=== PATIENT | female | born 1985 | race Caucasian/White ===

== ENCOUNTER 2018-08-09 23:00 | Inpatient (IN) | payer MEDICAID, OTHER, SELFPAY ==
--- NOTE | 2018-08-09 16:50 | PDOC.FPROB ---
FMR OB H&P: HPI - History of Present Illness Chief Complaint: Induction of labor Indentification: 32 y/o @ 41w1d WGA by LMP c/w 27w2d US History of Present Illness: Patient here for induction of labor for post-dates, however patient now desires a repeat . She endorses movement, denies vaginal bleeding, d/c, ctx, LOF. She denies dysuria, fevers, chills, headache, vision changes, RUQ pain. Primary Care Physician: Dr. Nicholson and Dr. Smith at [facility]. FMR OB H&P: Current - Care : 3 Para: 2000 Gestational age: 41w1d Due date: 08/01/18 Dating Criteria: LMP c/w 27w2d US Course/Complications: Recurrent UTI's in Anemia of Possible umbilical hernia on US, no evidence of gastroscisis - OB Labs HIV: negative RPR: negative Gonorrhea: negative Chlamydia: negative 1 hour gtt: 63 GBS: negative H&H: 10.7/30.2, 9.8/29.1 - First Trimester Ultrasound First trimester: Late to care, no first trimester US done here - Anatomy Survey Anatomy survey: Possible umbilical hernia, no evidence of gastroscisis FMR OB H&P: History - Past Medical History PMH: Recurrent UTI's on macrobid h/o Chlamydia prior to Anemia in - OB History OB History: 1. Term 2. Term section for NRFHT - [employer] History [employer] History: h/o chlamydia prior to s/p treatment with negative JOSELINE. h/o HSIL s/p colpo, repeat pap showed NILM in 01/2018 - Surgical History Sx History: section x1 - Social History Social History: Denies tobacco, EtOH, and drug use - Family History Family History: Mother - DM, HTN FMR OB H&P: Medications - Current Home Medications: Medication Instructions Recorded Confirmed Type Pnv No.95/Ferrous Fum/Folic AC 1 tab PO DAILY 08/09/18 08/09/18 History [ Vitamin Tablet] Allergies/Adverse Reactions: Allergies Allergy/AdvReac Type Severity Reaction Status Date / Time No Known Allergies Allergy Verified 08/09/18 23:38 FMR OB H&P: ROS - Review of Systems General: denies: fever/chills, weight/appetite/sleep changes Eyes: denies: eye pain, vision changes ENT: denies: nasal congestion, rhinorrhea Cardiovascular: denies: chest pain, palpitation Respiratory: denies: cough, congestion, shortness of breath Gastrointestinal: denies: abdominal pain, nausea, vomiting Genitourinary (Female): denies: vaginal discharge, vaginal pain, vaginal bleeding Musculoskeletal: denies: pain, stiffness, tenderness Neurologic: denies: numbness, weakness Integumentary: denies: itching Psychological: denies: depression, anxiety FMR OB H&P: Vital Signs - Maternal Vital signs: BP 109/71 HR 95 RR 19 Temp 98.7 - Heart Tones Baseline: 130 Variability: moderate Acceleration: absent Deceleration: absent Category: category 1 [place] contractions every: 7-8 minutes FMR OB H&P: Physical Exam - Physical Exam General: NAD, awake, alert and oriented HEENT: normocephalic and atraumatic, MMM Neck: supple, no JVD Chest: non-tender to palpation Heart: RRR, normal S1/S2, no murmurs/rubs/gallops General: CTAB, no respiratory distress, good air movement, no wheezing Abdomen: soft, gravid, non-tender, bowel sound present Musculoskeletal: pulses present, FROM in all four extremities Neurological: cranial nerves II through XII intact (grossly) Skin: no rash, capillary refill <2 seconds Psychiatric: intact recent and remote memory, good judgement and insight - Pelvic Exam SVE: 1/50/-3 Miner score: 3 Presentation: cephalic confirmed by bedside US Estimated Weight: 7 lbs (Carlos holds) FMR OB H&P: A/P - Problem List (1) Encounter for trial of labor Status: Acute Code(s): O33.9 - MATERNAL CARE FOR DISPROPORTION, UNSPECIFIED Assessment and Plan: 32 y/o @ 41w1d here for induction of labor TOLAC -Pt consented for TOLAC however during discussion, pt requests C section -Monitor with intermittent monitoring (2) History of delivery Status: Acute Code(s): Z98.891 - HISTORY OF UTERINE SCAR FROM PREVIOUS SURGERY Assessment and Plan: h/o vertical skin incision with Low transverse uterine incision Posterior placenta on US 75.7% chance success of TOLAC -Pt consented for TOLAC however wishes to proceed with c section, likely in the morning Disposition: Admit to L&D Discussion: Date/Time: 08/09/18 9775 This H&P was discussed with Dr. Tay who agree with the above documentation and plan. Addendum - Attending - Attending Attestation Date/Time: 08/10/18 4441 I personally evaluated the patient and discussed the management with Dr. Beth I agree with the History, Examination, Assessment and Plan documented above with any addition or exceptions noted below. 32 y/o female at 41.1 wks by LMP/27.3 wk sono admitted for post-dates IOL. Patient with prior history of LTCS with last . R/B/A discussed during . Patient planned for TOLAC. Today R/B/A and consents discussed with patient. Patient and declined TOLAC and requested RLTCS. Patient obs overnight. NPO after midnight. Scheduled for 0730 section in AM. FHT cat 1. May continue intermittent monitoring. Placenta fundal. Cephalic presentation. Meenakshi
[2018-08-09 23:51] VITALS: BMI 30.9
[2018-08-10] MEDS ORDERED: Promethazine HCl 25 MG/ML VIAL IM PRN ×2 (01:55→12:24)
[2018-08-10] MEDS ORDERED: Ondansetron PF 4 MG/2 ML Vial IVP PRN ×3 (01:55→14:36)
[2018-08-10] MEDS ORDERED: Lactated Ringer's 1,000 ML IV SCH (02:00)
[2018-08-10 02:05] LABS: Hemoglobin 11.4 g/dL (12.0-16.0); Mean Corpuscular Volume 85.2 fL (78.0-98.0); Mean Platelet Volume 8.6 fL (7.4-10.4); Platelet Count 302 thou/uL (130-400); Red Blood Cell (RBC) Count 3.93 mill/uL (4.20-5.40); White Blood Cell (WBC) Count 9.5 thou/uL (4.8-10.8)
[2018-08-10] MEDS ORDERED: Bicitra 30 ML UDCUP PO SCH (02:15)
[2018-08-10] MEDS: Dextrose 5%-Lactated Ringers 1,000 ML IV SCH ×3 (02:15→17:58)
[2018-08-10] MEDS ORDERED: CEFAZOLIN 2 GM/50 ML BAG IVPB SCH (02:30)
[2018-08-10 02:44] LABS: HBSAg Index 0.26 S/CO (0-0.99); Hep B Surf Ag Non-Reactive S/CO (NonReactive)
[2018-08-10 05:36] LABS: Syphilis Antibody Nonreactive (Nonreactive); Syphilis Antibody Index 0.05 S/CO (<1.00 Non-Reactive)
[2018-08-10] MEDS ORDERED: Bicitra 30 ML UDCUP ONE (07:24)
[2018-08-10] MEDS ORDERED: CEFAZOLIN 2 GM/50 ML BAG ONE (07:24)
[2018-08-10] MEDS ORDERED: Bupivacaine 0.75% W/DEXTROSE 8.25% 2 ML AMP ONE (09:44)
[2018-08-10] MEDS ORDERED: Morphine PF 1 MG/ML SYR ONE (09:44)
[2018-08-10] MEDS ORDERED: Ondansetron PF 4 MG/2 ML Vial ONE (09:44)
[2018-08-10] MEDS ORDERED: Oxytocin 10 UNITS/ML VIAL ONE (09:45)
[2018-08-10] MEDS ORDERED: ePHEDrine/0.9% NaCl/PF SYRINGE 50 mg/10 ml ONE (10:26)
[2018-08-10] MEDS ORDERED: Fentanyl 100 MCG/2 ML VIAL ONE (11:18)
[2018-08-10] MEDS ORDERED: NS / Oxytocin 40 units/1000ml 1,000 ML ONE (11:42)
--- NOTE | 2018-08-10 11:56 | PDOC.OPDEL ---
OB Operative/Delivery Note Delivery Dr/Surgeon: Dr. Nicholson and Dr. Elena with Dr. Yanez attending Pre-Delivery Diagnosis: scheduled section Procedure/Post Delivery Dx: primary low transverse CS Weeks gestation: 41 (41w2d) Anesthesia: spinal - Findings A Sex: female - 1 min: 9 - 5 min: 9 - Additional Findings/Plan Placenta delivered: spontaneous findings: low transverse hysterotomy without extension Estimated blood loss: 465 mL Compilations/Other Findings: Preoperative Diagnosis: 1)Term intrauterine 2)Previous with vertical skin incision 3)Anemia of 4)Recurrent UTI's in Postoperative Diagnosis: 1)Term intrauterine , delivered 2)Previous with vertical skin incision 3)Anemia of 4)Recurrent UTI's in Anesthesia: spinal Indications: The patient is a 32 year old female at 41.2 weeks gestation who presents for a repeat scheduled . Procedure in Detail: After risks, benefits, and alternatives were explained to the patient, she gave informed consent. Pre-operative antibiotics included Cefazolin 2 gram IV. The patient was taken to the operating room and spinal anesthesia was initiated. She was placed in the supine position with a left tilt and prepped and draped in usual sterile fashion. A vertical skin incision was made with a scalpel and the prior scar was removed in an eliptical fashion. The incision was then carried down to the level of the fascia which was then cut in the midline in a vertical fashion. The incision was continued through the midline of the recti muscles. The peritoneum was entered sharply and retracted manually. Bladder blade was placed. A low transverse score was made on the uterus with the scalpel and the uterus was entered in the midline bluntly. Meconium stained fluid was seen. The hysterotomy was extended manually in a cephalocaudal fashion. The infant was noted to be vertex and was easily delivered by fundal pressure. Mouth and nares were bulb suctioned. Cord clamped and cut after 30 seconds of delayed cord clamping and grossly normal female infant was handed to waiting nurse. Cord blood was obtained. Placenta was spontaneousy delivered, found to be intact with 3 vessel cord and discarded. The uterus was externalized and the endometrium was curetted with a dry lap. The bladder blade was replaced and the uterus was closed with a running locking #1 monocryl suture followed by one figure of eight #1 monocryl suture to achieve hemostasis. Following this hemostasis was noted. The abdomen was inspected and suctioned free of clots. The uterus was internalized and the hysterotomy was again noted to be hemostatic. The peritoneum was closed with running, non-locking 3-0 chromic. The fascia was closed with a running non- locking 0-PDS suture. The subcutaneous tissue was irrigated and there were no bleeders. The subcutaneous tissue was approximated with interrupted 2-0 plain gut sutures. The skin was approximated with isaura and a pressure dressing was placed. All counts were correct. The patient tolerated the procedure well and was taken to the recovery room in stable condition. Quantitative Blood Loss: 465 ml Complications: None Specimens: Cord blood sent to lab for blood type Findings: Grossly normal male/female with apgars of 9 and 9 at 1 and 5 minutes respectively. Grossly normal placenta with 3 vessel cord discarded. Drains: Mercado to gravity draining clear urine Post delivery plan: routine recovery
[2018-08-10] MEDS ORDERED: diphenhydrAMINE 50 MG/ML VIAL IVP PRN (12:24)
[2018-08-10] MEDS ORDERED: Naloxone HCl 0.4 mg/ml Vial IVP PRN ×2 (12:24)
[2018-08-10] MEDS ORDERED: Naloxone HCl 0.4 mg/ml Vial IV PRN (12:24)
[2018-08-10] MEDS ORDERED: Promethazine HCl 25 MG SUPP PR PRN (12:24)
[2018-08-10] MEDS ORDERED: Eucerin (Mineral Oil/Petrolatum,White) 30 gm Jar TOP PRN (12:24)
[2018-08-10] MEDS ORDERED: Ketorolac Tromethamine 30 MG/ML VIAL IVP PRN (12:24)
[2018-08-10] MEDS ORDERED: Communication Order-Pharmacy FS SCH (12:30)
[2018-08-10] MEDS ORDERED: Acetaminophen 325 MG TAB PO PRN (14:36)
[2018-08-10] MEDS ORDERED: Ibuprofen 800 MG TAB PO SCH (14:36)
[2018-08-10] MEDS ORDERED: Adacel (T-DAP) 0.5 ML SYRINGE IM ONE (14:36)
[2018-08-10] MEDS ORDERED: Simethicone Chewable 80 MG TAB PO PRN (14:36)
[2018-08-10] MEDS ORDERED: Lanolin Ointment 7 GM TUBE TOP PRN (14:36)
[2018-08-10] MEDS: Ibuprofen 800 MG TAB PO SCH ×2 (15:52→21:54)
[2018-08-10] MEDS: Docusate Calcium (SURFAK) 240 MG CAP PO SCH (21:54)
[2018-08-11] MEDS: HYDROcodone/Acetaminophen 5/325 mg Tablet PO PRN ×3 (00:47→20:02)
[2018-08-11] MEDS: Dextrose 5%-Lactated Ringers 1,000 ML IV SCH ×3 (04:26→14:55)
--- NOTE | 2018-08-11 05:19 | PDOC.PP ---
Post Progress Note Post Day #: 1 Subjective: Post op day #1 s/p rLTCS with vertical incision. No significant overnight events. Patient doing well. Ambulating. Tolerating PO. PO intake tolerated: yes Flatus: yes Ambulation: yes Vital Signs (12 hours) Temp Pulse Resp BP Pulse Ox 08/11/18 04:30 98.2 F 63 16 94/50 L 08/11/18 00:45 98.7 F 75 16 92/54 L 08/10/18 19:45 98.8 F 75 20 109/59 L 97 Weight Weight 79.379 kg - Physical Examination General: NAD Cardiovascular: no m/r/g, RRR Respiratory: clear to auscultation bilaterally, non-labored breathing Abdominal: + bowel sounds, lochia (less than period), no distention, appropriately TTP Fundus firm & at: at umbilicus Extremities: negative homans (B) Deviation from normal: Dressing clean, dry, and intact Neurological: no gross focal deficits Psychiatric: A&Ox3, normal affect Result Diagrams: 08/11/18 05:39 Additional Labs: Post Labs Blood Type O POSITIVE 08/09/18 23:55 Hep Bs Antigen Non-Reactive S/CO (NonReactive) 08/09/18 23:55 (1) S/P repeat low transverse Code(s): Z98.891 - HISTORY OF UTERINE SCAR FROM PREVIOUS SURGERY Status: Acute Comment: 32 year old at 41.2 wks delivered TAGA F infant at 10: 43 on 08/10 via rLTCS with vertical incision. QBL 465 mL. Apgars 9/9. - Routine PP care - Contraception: Need to discuss with patient prior to d/c - VSS (2) Term delivered Code(s): O80 - ENCOUNTER FOR FULL-TERM UNCOMPLICATED DELIVERY Status: Acute (3) Chlamydia infection affecting Code(s): O98.819 - OTH MATERNAL INFEC/PARASTC DISEASES COMP PREG, UNSP TRI; A74.9 - CHLAMYDIAL INFECTION, UNSPECIFIED Status: Acute Comment: s/p negative JOSELINE (4) Anemia affecting Code(s): O99.019 - ANEMIA COMPLICATING , UNSPECIFIED TRIMESTER Status : Acute Qualifiers: Trimester: third trimester Qualified Code(s): O99.013 - Anemia complicating , third trimester Comment: H/H stable (5) Recurrent UTI (urinary tract infection) complicating Code(s): O23.40 - UNSP INFECTION OF URINARY TRACT IN , UNSP TRIMESTER Status: Acute Qualifiers: Trimester: third trimester Qualified Code(s): O23.43 - Unspecified infection of urinary tract in , third trimester - Assessment/Plan Stable. Anticipate d/c home within next 34-48 hours. Tiffani Larsen, DO PGY-2 Addendum - Attending - Attending Attestation Date/Time: 08/11/18 2877 I personally evaluated the patient and discussed the management with Dr. Larsen. I agree with the History, Examination, Assessment and Plan documented above with any addition or exceptions noted below. Stable POD# 1 s/p RLTCS. Meeting appropriate milestones. Acute blood loss anemia-appropriate drop in H+H postoperatively. Anticipate d/c to home on POD #2 or 3.
[2018-08-11 05:49] LABS: Hemoglobin 9.9 g/dL (12.0-16.0); Mean Corpuscular HGB CONC 32.8 g/dL (32.0-36.0); Mean Corpuscular Hemoglobin 28.4 pg (27.0-31.0); Mean Corpuscular Volume 86.4 fL (78.0-98.0); Mean Platelet Volume 8.2 fL (7.4-10.4); Platelet Count 240 thou/uL (130-400); White Blood Cell (WBC) Count 10.8 thou/uL (4.8-10.8)
[2018-08-11] MEDS: Prenatal Vitamin 1 TAB PO SCH (08:08)
[2018-08-11] MEDS: Ibuprofen 800 MG TAB PO SCH ×3 (08:08→21:40)
[2018-08-11] MEDS: Docusate Calcium (SURFAK) 240 MG CAP PO SCH ×2 (08:08→21:41)
[2018-08-11] MEDS ORDERED: Sodium Chloride 0.9% 10 ML ONE (16:44)
[2018-08-11] MEDS ORDERED: Lactated Ringer's 1,000 ML IV SCH (16:45)
[2018-08-11] MEDS ORDERED: Lactated Ringer's 500 ML IV SCH (16:48)
[2018-08-11 16:49] LABS: Hemoglobin 10.4 g/dL (12.0-16.0); Mean Corpuscular HGB CONC 32.5 g/dL (32.0-36.0); Mean Corpuscular Hemoglobin 28.2 pg (27.0-31.0); Mean Corpuscular Volume 86.8 fL (78.0-98.0); Mean Platelet Volume 7.9 fL (7.4-10.4); Platelet Count 257 thou/uL (130-400); RBC Distribution Width 14.1 % (11.5-14.5); Red Blood Cell (RBC) Count 3.68 mill/uL (4.20-5.40); White Blood Cell (WBC) Count 9.4 thou/uL (4.8-10.8)
[2018-08-12] MEDS: Dextrose 5%-Lactated Ringers 1,000 ML IV SCH (04:41)
[2018-08-12] MEDS: Ibuprofen 800 MG TAB PO SCH (06:13)
--- NOTE | 2018-08-12 07:27 | PDOC.PP ---
Post Progress Note Post Day #: 2 Subjective: 32yo female delivered TAGA female at 41.2 by rLTCS with vertical incision. Tolerating PO, passing gas. No BM. Pain is well controlled. No questions or concerns. Feels ready to go home PO intake tolerated: yes Flatus: yes Ambulation: yes Vital Signs (12 hours) Temp Pulse Resp BP Pulse Ox 08/12/18 03:25 98.2 F 61 16 94/54 L 96 08/11/18 23:34 98.7 F 80 16 97/54 L 97 08/11/18 20:00 98.2 F 82 18 86/54 L Weight Weight 79.379 kg - Physical Examination General: NAD Cardiovascular: no m/r/g, RRR Respiratory: clear to auscultation bilaterally, non-labored breathing Abdominal: + bowel sounds, lochia, appropriately TTP Skin: CS incision dry & intact Deviation from normal: minimal surrounding erythema, no warmth. Verical incision with isaura Psychiatric: A&Ox3, normal affect Result Diagrams: 08/11/18 16:42 Additional Labs: Post Labs Blood Type O POSITIVE 08/09/18 23:55 Hep Bs Antigen Non-Reactive S/CO (NonReactive) 08/09/18 23:55 (1) Chlamydia infection affecting Code(s): O98.819 - OTH MATERNAL INFEC/PARASTC DISEASES COMP PREG, UNSP TRI; A74.9 - CHLAMYDIAL INFECTION, UNSPECIFIED Status: Acute Comment: s/p negative JOSELINE (2) S/P repeat low transverse Code(s): Z98.891 - HISTORY OF UTERINE SCAR FROM PREVIOUS SURGERY Status: Acute Comment: 32 year old at 41.2 wks delivered TAGA F infant at 10: 43 on 08/10 via rLTCS with vertical incision. QBL 465 mL. Apgars 9/9. - Routine PP care - Contraception: Need to discuss with patient prior to d/c - VSS (3) Term delivered Code(s): O80 - ENCOUNTER FOR FULL-TERM UNCOMPLICATED DELIVERY Status: Acute (4) Anemia affecting Code(s): O99.019 - ANEMIA COMPLICATING , UNSPECIFIED TRIMESTER Status : Acute Qualifiers: Trimester: third trimester Qualified Code(s): O99.013 - Anemia complicating , third trimester Comment: H/H stable - Assessment/Plan 32 year old at 41.2 wks delivered TAGA F infant at 10:43 on 08/10 via rLTCS with vertical incision. - Term , delivered rLTCS - QBL 465 mL - Routine PP care - VSS Chlamydia affecting - s/p negative JOSELINE Anemia of - H/H stable Addendum - Attending - Attending Attestation Date/Time: 08/12/18 1128 I personally evaluated the patient and discussed the management with Dr. Morrow I agree with the History, Examination, Assessment and Plan documented above with any addition or exceptions noted below. Postop Day #2 s/p RLTCS with vertical skin incision. Bleeding minimal. +Flatus, spontaneous urination. Pain controlled. Incision is clean/dry/intact. Very mild erythema surrounding isaura. No purulent drainage or edema. Patient is requesting d/c to home today. Followup in 1 week with PNC for staple removal. Routine counseling reviewed.
[2018-08-12] MEDS: Prenatal Vitamin 1 TAB PO SCH (07:59)
[2018-08-12] MEDS: Docusate Calcium (SURFAK) 240 MG CAP PO SCH (07:59)
[2018-08-12 08:15] VITALS: BP 100/58; TEMP 98.5
[2018-08-12] MEDS: HYDROcodone/Acetaminophen 5/325 mg Tablet PO PRN (12:47)
== END 2018-08-12 14:12 | disposition home or self-care (01) | DRG 787 ==
LOC: L&D 23:18 → 3SE 08-10 14:31
PROVIDERS: ADMIT Family Medicine; ATTEND Family Medicine
PROC: 10D00Z1 Extraction of Products of Conception, Low, Open Approach (ICD-10-PCS; principal; 2018-08-09)
DX: O48.0 Post-term pregnancy (principal); D62 Acute posthemorrhagic anemia; O34.212 Maternal care for vertical scar from previous cesarean delivery; Z3A.41 41 weeks gestation of pregnancy; Z37.0 Single live birth; O99.03 Anemia complicating the puerperium
CPT/HCPCS: 36415; 51702; 85027; 86780; 86850; 86900; 86901; 87340; J1885; J2274; J2405; J2590; J3010; J3490

== ENCOUNTER 2022-01-16 12:39 | Emergency (ER) | payer MEDICAID, SELFPAY ==
[2022-01-16] MEDS ORDERED: Ondansetron ODT 4 MG TAB ONE (13:46)
== END 2022-01-16 14:01 | disposition home or self-care (01) ==
LOC: ERS 12:39
DX: O98.512 Other viral diseases complicating pregnancy, second trimester (principal); B34.9 Viral infection, unspecified; O21.2 Late vomiting of pregnancy; Z3A.22 22 weeks gestation of pregnancy
CPT/HCPCS: Q0162

== ENCOUNTER 2022-01-27 21:12 | Emergency (ER) | payer SELFPAY ==
[2022-01-27 21:54] LABS: #Eosinphils 0.2 thou/uL (0.0-0.7); #Lymphocytes 2.8 thou/uL (1.20-3.40); #Monocytes 0.6 thou/uL (0.11-0.59); #Neutrophils 6.9 thou/uL (1.40-6.50); %Basophils 0.4 % (0.0-1.0); %Eosinophils 1.7 % (0.0-10.0); %Monocytes 5.4 % (0.0-10.0); %Neutrophils 65.5 % (42.0-75.0); Hemoglobin 12.7 g/dL (12.0-16.0); Mean Corpuscular Hemoglobin 31.9 pg (27.0-31.0); Mean Corpuscular Volume 93.7 fL (78.0-98.0); Mean Platelet Volume 7.2 fL (7.4-10.4); Platelet Count 316 thou/uL (130-400); RBC Distribution Width 13.8 % (11.5-14.5); Red Blood Cell (RBC) Count 3.97 mill/uL (4.20-5.40); White Blood Cell (WBC) Count 10.5 thou/uL (4.8-10.8)
[2022-01-27 22:05] LABS: PTT 32.6 sec (22.9-36.1); Prothrombin Time 12.9 sec (12.0-14.7)
[2022-01-27 22:19] LABS: Bacteria/HPF 3+ HPF (None Seen); Bilirubin Negative (Negative); Blood, Urine Negative (Negative); Clarity Clear (Clear); Glucose, Urine (Dipstick) Normal (Negative); Ketone, Urine Negative (Negative); Leukocyte 75 Leu/uL (Negative); Nitrite Negative (Negative); Protein, Urine (Dipstick) Negative (Neg-Trace); RBC/HPF 0-3 HPF (0-3); Specific Gravity, Urine 1.006 (1.002-1.036); Squamous Epithelial 0-3 HPF (0-3); Urobilinogen Normal mg/dL (Less than 2); pH, Urine 6.5 (5.0-9.0)
[2022-01-27 22:33] LABS: ALT (SGPT) 10 U/L (8-55); AST (SGOT) 23 U/L (5-34); Albumin 3.5 g/dL (3.5-5.0); Alkaline Phosphatase 83 U/L (40-110); Anion Gap 14 mmol/L (10-20); BUN (Urea Nitrogen) 10 mg/dL (7.0-18.7); Bilirubin, Total 0.3 mg/dL (0.2-1.2); CK (CPK) 49 U/L (29-168); Calc. Creatinine Clearance 0 mL/min (70-130); Calcium 9.1 mg/dL (7.8-10.44); Carbon Dioxide 19 mmol/L (22-29); Chloride 107 mmol/L (98-107); Globulin 3.5 g/dL (2.4-3.5); Glucose 78 mg/dL (70-105); Potassium 3.7 mmol/L (3.5-5.1); Sodium 136 mmol/L (136-145)
== END 2022-01-27 23:11 | disposition home or self-care (01) ==
LOC: ERS 21:12
DX: O9A.212 Injury, poisoning and certain other consequences of external causes complicating pregnancy, second trimester (principal); T63.061A Toxic effect of venom of other North and South American snake, accidental (unintentional), initial encounter; Z3A.23 23 weeks gestation of pregnancy
CPT/HCPCS: 80053; 81003; 81015; 82550; 85025; 85384; 85610; 85730; 99283